=== PATIENT | female | born 2000 | race Hispanic/Latino ===

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

== ENCOUNTER 2021-08-28 12:11 | Emergency (ER) | payer OTHER ==
[~2021-08-28] VITALS: Ht 157.5 cm; Wt 86.0 kg
[2021-08-28 12:27] VITALS: BP 126/74
[2021-08-28 12:30] VITALS: BP 119/55
[2021-08-28 13:01] VITALS: BP 125/67
[2021-08-28 13:30] VITALS: BP 119/67
[2021-08-28 13:56] VITALS: BP 126/72
== END 2021-08-28 13:56 | disposition home or self-care (01) ==
LOC: ED 12:11
DX: S63.601A Unspecified sprain of right thumb, initial encounter (principal); W21.06XA Struck by volleyball, initial encounter; Y93.68 Activity, volleyball (beach) (court); Y92.219 Unspecified school as the place of occurrence of the external cause

== ENCOUNTER 2024-06-24 14:03 | Emergency (ER) | payer OTHER ==
[~2024-06-24] VITALS: Ht 157.5 cm; Wt 99.7 kg
[2024-06-24 14:12] VITALS: BP 141/97
[2024-06-24 14:15] VITALS: BP 142/93
[2024-06-24] MEDS ORDERED: SODIUM CHLORIDE 0.9% 1,000 ML IV ONE (14:20)
[2024-06-24 14:37] LABS: BASO% 0.2 % (0-3); EOS% 1.5 % (0-8); HEMATOCRIT 45.4 % (37.0-47.0); HEMOGLOBIN 14.8 g/dl (12.0-16.0); IMMATURE GRANULOCYTES 0.1 % (0.0-5.0); LYMPH% 22.9 % (15-41); MEAN CORPUSCULAR HGB 29.7 pG CALC (26.0-32.0); MEAN CORPUSCULAR HGB CONC 32.6 g/dL CAL (32.0-36.0); MONO% 4.5 % (2-13); NEUT# 7.41 thou/uL (2.00-7.15); NEUT% 70.8 % (42-76); RED BLOOD COUNT 4.99 mill/uL (4.20-5.60)
[2024-06-24 14:42] VITALS: BP 129/73
[2024-06-24 15:03] LABS: ALBUMIN 4.8 g/dL (3.2-5.0); CREATININE 0.6 mg/dL (0.5-1.0); TOTAL PROTEIN 8.9 g/dL (6.3-8.2)
[2024-06-24 15:18] LABS: BILIRUBIN, TOTAL 0.5 mg/dL (0.02-1.3)
[2024-06-24 15:31] VITALS: BP 142/84
[2024-06-24 15:59] LABS: URINE BILIRUBIN - DIPSTICK Negative (NEGATIVE); URINE BLOOD DIPSTICK Negative (NEGATIVE); URINE GLUCOSE - DIPSTICK Negative (NEGATIVE); URINE KETONE Negative (NEGATIVE); URINE LEUK ESTERASE Negative (NEGATIVE); URINE NITRITE - DIPSTICK Negative (Negative); URINE PROTEIN - DIPSTICK Negative (NEG-TRACE); URINE SPECIFIC GRAVITY <=1.005; URINE UROBILINOGEN - DIPSTICK 0.2 E.U./dL (0.2)
[2024-06-24 16:00] LABS: URINE COLOR Yellow
[2024-06-24 16:01] VITALS: BP 137/83
[2024-06-24] MEDS ORDERED: ZOFRAN4 MG/TAB PO (16:38)
[2024-06-24 16:48] VITALS: BP 137/83
== END 2024-06-24 17:41 | disposition home or self-care (01) ==
LOC: ED 14:03
PROVIDERS: Family Medicine
DX: A08.4 Viral intestinal infection, unspecified (principal)